=== PATIENT | female | born 1965 | race Caucasian/White ===

== ENCOUNTER 2017-03-03 05:54 | Emergency (ER) | payer BC, MEDICAID, OTHER ==
[2017-03-03] MEDS ORDERED: NS 0.9% 1000 ML* 1,000 ML IV ONE ×3 (06:11→10:47)
[2017-03-03] MEDS ORDERED: Ondansetron INJ* 2 MG/ML VIAL IV ONE ×2 (06:11→07:45)
--- NOTE | 2017-03-03 06:18 | ED ---
I, Oh,Huma, scribed for Hussain Teague MD on 03/03/17 at 0613 . Abdominal Pain/Female - HPI Summary HPI Summary: This 51 y/o female presents to ED for diffuse, 10/10 abd pain since 1900 PM last evening. Positive n/v x6 since the time of onset. Negative fever. Pt is noted afebrile with temperature of 96.9 F at triage. Pt ate dinner last time. She did not take any medications to control her pain or n/v. PMHx inclues migraine PATEL. PSHx includes tubal ligation. - History of Current Complaint Chief Complaint: EDAbdPain Stated Complaint: ABD PAIN/VOMITING Hx Obtained From: Patient, Medical Records Onset/Duration: Sudden Onset, Still Present Timing: Constant Pain Intensity: 10 Pain Scale Used: 0-10 Numeric Location: Diffuse Aggravating Factor(s): Nothing Alleviating Factor(s): Nothing Associated Signs and Symptoms: Positive: Nausea, Vomiting. Negative: Fever Allergies/Adverse Reactions: Allergies Allergy/AdvReac Type Severity Reaction Status Date / Time No Known Allergies Allergy Verified 03/03/17 05:55 PMH/Surg Hx/FS Hx/Imm Hx - Immunization History Date of Tetanus Vaccine: unk Date of Influenza Vaccine: unk Infectious Disease History: No Infectious Disease History: Denies: Traveled Outside the [place] in Last 30 Days - Family History Known Family History: Positive: Hypertension - Positive to father - Social History Alcohol Use: Rare Hx Substance Use: No Substance Use Type: Reports: None Hx Tobacco Use: Yes Smoking Status (MU): Heavy Every Day Tobacco Smoker Review of Systems Negative: Fever Positive: Abdominal Pain, Vomiting, Nausea All Other Systems Reviewed And Are Negative: Yes Physical Exam Triage Information Reviewed: Yes Vital Signs On Initial Exam: Initial Vitals Temp Pulse Resp BP Pulse Ox 96.9 F 70 18 154/97 99 03/03/17 05:57 03/03/17 05:57 03/03/17 05:57 03/03/17 05:57 03/03/17 05:57 Vital Signs Reviewed: Yes Appearance: Positive: Well-Appearing, Pain Distress - mild discomfort Skin: Positive: Warm Head/Face: Positive: Normal Head/Face Inspection Eyes: Positive: SUMI ENT: Positive: Hearing grossly normal Neck: Positive: Supple Respiratory/Lung Sounds: Positive: Clear to Auscultation, Breath Sounds Present Cardiovascular: Positive: RRR Abdomen Description: Positive: Nontender, Soft Bowel Sounds: Positive: Present Musculoskeletal: Positive: Strength/ROM Intact Neurological: Positive: Alert, Oriented to Person Place, Time Psychiatric: Positive: Affect/Mood Appropriate - [place] Coma Scale Coma Scale Total: 15 Diagnostics - Vital Signs Vital Signs Temp Pulse Resp BP Pulse Ox 03/03/17 05:57 96.9 F 70 18 154/97 99 - Laboratory Result Diagrams: 03/03/17 06:13 03/03/17 06:13 Lab Statement: Any lab studies that have been ordered have been reviewed, and results considered in the medical decision making process. Re-Evaluation - Re-Evaluation First Eval Re-Evaluation Time: 10:49 Change: Unchanged Comment: The patient is feeling better but her blood pressure is low. Abdominal Pain Fem Course/Dx - Diagnoses Provider Diagnoses: Abdominal pain, Nausea and vomiting Discharge - Discharge Plan Condition: Stable Disposition: OTHER Discharge Disposition Comment: Pending blood work. Signed out at shift change. Patient Education Materials: Acute Nausea and Vomiting (ED), Abdominal Pain (ED ) Referrals: [facility] [Outside] - 3 Days No Primary Care Phys,NOPCP [Primary Care Provider] - The documentation as recorded by the Juan Manuel smith Soohyun accurately reflects the service I personally performed and the decisions made by me, Hussain Teague MD.
[2017-03-03 06:35] LABS: Urine Bacteria Absent (Absent); Urine Bilirubin Negative (Negative); Urine Glucose Negative (Negative); Urine Nitrite Negative (Negative)
[2017-03-03 06:36] LABS: Hematocrit 51 % (35-47); Mean Corpuscular HGB Conc 33 g/dl (31-36); Mean Corpuscular Hemoglobin 29 pg (27-31); Mean Corpuscular Volume 89 fL (80-97); Mean Platelet Volume 9 um3 (7.4-10.4); Red Blood Count 5.77 10^6/ul (4.0-5.4); Red Cell Distribution Width 15 % (10.5-15); White Blood Count 12.5 10^3/ul (3.5-10.8)
[2017-03-03 06:49] LABS: Albumin 4.5 g/dL (3.2-5.2); BUN/Creatinine Ratio 12.9 (8-20); C Reactive Protein 4.68 mg/L (< 5.00); Calcium 9.6 mg/dL (8.6-10.3); EGFR African American 91.4 (>60); EGFR Non-African American 71.1 (>60); Globulin 3.6 g/dL (2-4); Potassium 3.5 mmol/L (3.5-5.0); Total Bilirubin 1.1 mg/dL (0.2-1.0); Total Protein 8.1 g/dL (6.4-8.9)
[2017-03-03] MEDS ORDERED: Morphine INJ* 4 MG/ML 1 ML SYRINGE IV ONE (08:10)
[2017-03-03] MEDS ORDERED: Iohexol 300* (CONTRAST) 10 ML SDV IV ONE (08:35)
--- NOTE | 2017-03-03 10:39 | RAD ---
Indication: Abdominal pain. Contrast: Administered 105.0 ml of OMNIPAQUE 300 mg/ml CT of the abdomen and pelvis was performed after oral and IV contrast administration. Coronal and sagittal reconstructed images were obtained. Lung bases demonstrate no pleural fluid, nodules or masses. Heart is of normal size without evidence of pericardial effusion. Lung bases demonstrate no pleural fluid, nodules or masses. Heart is normal size without evidence of pericardial effusion. The liver is normal in size. Prominent common bile duct likely due to postcholecystectomy state of the patient. Pancreas demonstrates no mass or pancreatic duct dilatation. The spleen is normal in size. No adrenal lesions are kidneys demonstrate symmetric nephrograms without focal lesions. Small bowel demonstrates no abnormal dilatation. The stomach is collapsed. CT of the pelvis demonstrates no pelvic adenopathy. The uterus is otherwise unremarkable. Small bowel demonstrates no abnormal dilatation. The wiyot bladder is partially collapsed. The uterus and ovaries are unremarkable. The bladder is unremarkable. IMPRESSION: NO ABNORMAL MASSES OR FLUID COLLECTIONS ARE IDENTIFIED. THE PATIENT IS STATUS POST CHOLECYSTECTOMY. NO FREE FLUID IS IDENTIFIED.
[2017-03-03] MEDS ORDERED: Al Hydrox/Mg Hydrox/Simet LIQ* 30 ML UDC PO ONE (11:08)
[2017-03-03] MEDS ORDERED: Lidocaine 2% VISCOUS* 15 ML UDC PO ONE (11:08)
[2017-03-03 13:06] VITALS: BP 101/77
--- NOTE | 2017-03-03 18:48 | ED ---
Alix Garcia Thomas, scribed for Simone Stoll MD on 03/03/17 at 1049 . Progress - Progress Note Progress Note: The patient is a 51 y/o F who is complaining of abdominal pain and N/V. She is a sign out from Dr. Mckeon to Dr. Stoll at 10:48. Dr. mckeon requested to give a PO challenge and if she has no nausea or vomiting she can be discharge home. She is still nauseous and she reported increased abdominal pain. Therefore, I requested for an abdominal and pelvic CT. . PHYSICAL EXAM: VITAL SIGNS: Reviewed. GENERAL: Patient is a well-developed and nourished female who is lying comfortable in the stretcher. ~Patient is not in any acute respiratory distress. HEAD AND FACE: Normocephalic and atraumatic. EYES: PERRLA, EOMI x 2, No injected conjunctiva. EARS: Hearing grossly intact. Ear canals and tympanic membranes are WNL. MOUTH: Oropharynx within normal limits. NECK: Supple, trachea is midline, no adenopathy, no JVD. CHEST: Symmetric, no tenderness at palpation LUNGS: Clear to auscultation bilaterally. No wheezing or crackles. CVS: RRR, S1 and S2 present, no murmurs or gallops appreciated. ABDOMEN: Positive epigastric pain. Soft, non-tender. No signs of distention. Positive bowel sounds. No rebound no guarding, and no masses palpated. No abdominal bruit or pulsations. EXTREMITIES: FROM in all major joints, no edema, no cyanosis or clubbing. NEURO: Alert and oriented x 3. No acute neurological deficits. Speech is normal. SKIN: Dry and warm ED COURSE: In the ED course she was given IV fluids, morphine for the pain and zofran for the nausea and vomiting. CT Abd/Pel reveals NO ABNORMAL MASSES OR FLUID COLLECTIONS ARE IDENTIFIED. THE PATIENT IS STATUS POST CHOLECYSTECTOMY. NO FREE FLUID IS IDENTIFIED. Her blood pressure is runing in the 90's / 60's. She reports her blood pressure usually runs low similar to the current BP. I requested for Orth[facility] vital signs and nurse reports no abnormal orthosthatic changes. Patient is feeling better. Patient is ambulating and i= she is eating and drinking with out any nausea or vomiting. Final impression: The patient was diagnosed with abdominal pain and was discharged home with followup from her PCP Re-Evaluation - Re-Evaluation First Eval Re-Evaluation Time: 10:49 Change: Unchanged Comment: The patient is feeling better but her blood pressure is low. Course/Dx - Diagnoses Provider Diagnoses: Abdominal pain, Nausea and vomiting The documentation as recorded by the Alix smith Thomas accurately reflects the service I personally performed and the decisions made by me, Simone Stoll MD.
== END 2017-03-03 13:06 ==
LOC: ED 05:54
DX: R10.9 Unspecified abdominal pain (principal); R11.2 Nausea with vomiting, unspecified
CPT/HCPCS: 36415; 74177; 80053; 81003; 81015; 83605; 83690; 85025; 86140; 87086; 96374; 96375; 99285; A9270-GY; J2270; J2405; Q9967